=== PATIENT | male | born 1965 | race Caucasian/White ===

== ENCOUNTER 2018-05-17 08:07 | Day surgery (SDC) | payer BC ==
[~2018-05-17 08:07] MED LIST: CEFAZOLIN 2 GM/50 ML (PMX) 50 ML IVPB
[2018-05-17] MEDS: GABAPENTIN 300 MG CAP PO (08:27)
[2018-05-17] MEDS: traMADol 50 MG TAB PO (08:27)
[2018-05-17] MEDS ORDERED: MIDAZOLAM 1 MG/ML 2 ML INJ (09:25)
[2018-05-17] MEDS ORDERED: ROPIVACAINE 0.5 % 30 ML VIAL (09:25)
[2018-05-17] MEDS ORDERED: CEFAZOLIN 1 GM INJ ×2 (09:43→10:35)
[2018-05-17] MEDS ORDERED: LIDOCAINE 2% (SDV) 5 ML INJ (10:35)
[2018-05-17] MEDS ORDERED: ROCURONIUM 50 MG INJ (10:35)
[2018-05-17] MEDS ORDERED: GLYCOPYRROLATE 0.4 MG INJ (10:35)
[2018-05-17] MEDS ORDERED: ONDANSETRON 4 MG INJ (10:35)
[2018-05-17] MEDS ORDERED: PROPOFOL 20 ML (10:35)
[2018-05-17] MEDS ORDERED: NEOSTIGMINE 3 MG/3 ML SYRINGE (10:35)
[2018-05-17] MEDS ORDERED: MEPERIDINE 25 MG INJ IV (11:00)
[2018-05-17] MEDS ORDERED: DIPHENHYDRAMINE 50 MG INJ IV (11:00)
[2018-05-17] MEDS ORDERED: LABETALOL 100MG INJ IV (11:00)
[2018-05-17] MEDS ORDERED: FENTAnyl 50 MCG/ML VIAL IV (11:00)
[2018-05-17] MEDS ORDERED: morphine 2 MG INJ IV (11:00)
== END 2018-05-17 12:40 | disposition home or self-care (01) ==
LOC: SDS 08:07
DX: M75.101 Unspecified rotator cuff tear or rupture of right shoulder, not specified as traumatic (principal); M19.011 Primary osteoarthritis, right shoulder; M25.811 Other specified joint disorders, right shoulder; S46.211D Strain of muscle, fascia and tendon of other parts of biceps, right arm, subsequent encounter; X58.XXXD Exposure to other specified factors, subsequent encounter; I10 Essential (primary) hypertension; E66.01 Morbid (severe) obesity due to excess calories; Z68.41 Body mass index [BMI] 40.0-44.9, adult
CPT/HCPCS: 29824